=== PATIENT | female | born 1980 | race Caucasian/White ===

== ENCOUNTER 2024-09-03 12:10 | Day surgery (SDC) | payer SELFPAY ==
[2024-09-03] VITALS (10 sets, daily range): BP systolic 106–127; BP diastolic 61–78; PULSE 71–98; RESP 14–18; TEMP 36.6–37.3; O2SAT 96–100; BMI 27.6
[2024-09-03 13:02] LABS: Hematocrit 35.3 % (37-47); Hemoglobin 11.7 g/dL (12.0-15.0); Mean Corp Hgb Conc 33.1 g/dL (32-36); Mean Corpuscular Hgb 30.5 pg (27.0-32.0); Mean Corpuscular Volume 91.9 fL (81-99); Mean Platelet Vol. 9.1 fl (6.2-12.0); Platelet Count 340 K/mm3 (150-450); RBC Distribution Width CV 12.8 % (11.6-14.6); RBC Distribution Width SD 42.8 fl (35.1-43.9); Red Blood Count 3.84 M/mm3 (4.2-5.4); White Blood Count 5.3 K/mm3 (4.4-11.0)
[2024-09-03 13:18] LABS: Internal QC Validated? YES +Cl - CLEAR BKGD; Pregnancy, Serum, hCG Quali. NEGATIVE Negative
--- NOTE | 2024-09-03 13:25 | PCM.PRE.AN2 ---
ASA Classification* ASA Classification ASA Classification: 1 Assessment & Plan Anesthesia* Anesthesia Assessment Anesthesia Assessment: Discussed sedation and/or anesthesia options, risks, benefits, and alternatives with patient/parents/legal guardian/POA. Questions invited. The patient/parents/legal guardian/POA seems to understand and agrees to proceed with anesthesia plan. Reviewed the physical assessment, medical history, allergy history and patient home medications list prior to surgery/procedure/anesthetic and documented any changes. Performed airway and anesthesia risk assessments. Anesthesia Type Anesthesia Type: MAC History Source History Obtained from:: Patient Anesthesia Focused Assessment* Temperature: 99.2 F Pulse Rate: 82 Blood Pressure: 119/62 Respiratory Rate: 16 Pulse Ox: 100 Oxygen Delivery Method: Room Air Airway Assessment Mouth opens: >3 cm Mallampati Score: I Teeth Condition: Intact, Partial and Upper Neck Range of motion (ROM): Full ROM Focused Labs Anesthesia Preop lab: CBC WBC 5.3 K/mm3 (4.4-11.0) 09/03/24 12:50 09/03/24 RBC 3.84 M/mm3 (4.2-5.4) L 09/03/24 12:50 09/03/24 Hgb 11.7 g/dL (12.0-15.0) L 09/03/24 12:50 09/03/24 Hct 35.3 % (37-47) L 09/03/24 12:50 09/03/24 Plt Count 340 K/mm3 (150-450) 09/03/24 12:50 09/03/24 CHEMISTRY COAG Pre-Assessment Diagnosis/Proposed Procedure Planned Operative Procedure(s): HYSTEROSCOPY D&C POLYPECTOMY Anesthesia History Anesthesia History - child care counselor: Anesthesia History - child care counselor Hx Hospitalization No 08/21/24 09:18 Any Problems With Anesthesia No: NO SURGERY HX 08/21/24 09:18 Cholinesterase deficiency No 08/21/24 09:18 You/Your Family Experience No 08/21/24 09:18 fever (hyperthermia) with Relationship Recent Exposure to Contagious No 09/03/24 12:48 Disease Does patient have nerve No 08/21/24 09:18 stimulator Patient instructed to have device shut off --Does patient have Pacemaker No 09/03/24 12:48 or ICD? When Was Last Pacemaker Check QUESTION #4 FULL TEXT: You/Your Family Experience fever (hyperthermia) with Anesthesia Any additional information?: No Last Oral Intake Last Oral intake: Last Oral Intake NPO since 07:30 09/03/24 12:48 Meds taken in AM with sips of No 09/03/24 12:48 water? Meds patient instructed to take am of surgery Any additional information?: No PONV PONV - child care counselor: PONV - child care counselor Female Yes 08/21/24 09:18 HX of Motion Sickness Yes 08/21/24 09:18 HX of N/V After Surgery No 08/21/24 09:18 Non-Smoker Yes 08/21/24 09:18 Duration of Surgery greater No 08/21/24 09:18 than 60 minutes Number of Risk Factors 3 08/21/24 09:18 PONV Score Moderate Risk 08/21/24 09:18 Any additional information?: No Height & Weight Height & Weight: Anesthesia: Height & Weight Height 5 ft 4 in 09/03/24 12:48 Weight: 73 kg 09/03/24 12:48 Body Mass Index (BMI) 27.6 09/03/24 12:48 Respiratory Assessment Respiratory Assessment - child care counselor: Respiratory Tract Infection Hx - child care counselor Hx Respiratory Tract Infection No 08/21/24 09:18 Any additional information?: No STOP Sleep Apnea STOP Sleep Apnea - child care counselor: STOP Sleep Apnea - child care counselor Hx Hypertension No 08/21/24 09:18 Hx Sleep Apnea No 08/21/24 09:18 CPAP BIPAP Do you snore loudly (louder No 08/21/24 09:18 than talking or can be heard Do you often feel tired/ Yes 08/21/24 09:18 fatigued/ sleepy during daytime? Has anyone observed you stop No 08/21/24 09:18 breathing during sleep? STOP Results Negative 08/21/24 09:18 QUESTION #5 FULL TEXT : Do you snore loudly (louder than talking or can be heard through closed doors)? Any additional information?: No Tobacco Use History Tobacco Use History - child care counselor: Tobacco Use History - child care counselor Tobacco Use Smoking Status Never smoker 08/21/24 09:18 Hx Tobacco Use No 08/21/24 09:18 Years Smoking Packs Smoked per Day Smoking Cessation Date was within the last 15 years Hx Smoking Cessation Date Hx Smoking Cessation Counseling Any additional information?: No Hematologic Medial History Hematologic Hx - child care counselor: Hematologic Medical Hx - customs and border protection officer Hx of Blood Transfusion No 08/21/24 09:18 Hx of Transfusion in last 3 No 08/21/24 09:18 Months Date of Last Transfusion (if within last 3 months) Ever experience any problems No 08/21/24 09:18 with transfusion(s)? Specify any problems Hx of Preganancy in last 3 No 08/21/24 09:18 Months Nurse Filling Out Transfusion DSCHRIBER 08/21/24 09:18 & Questions: Date: 08/21/24 08/21/24 09:18 Time: 09:19 08/21/24 09:18 Patient unable to answer at this time (ie. confused, unrespo Any additional information?: No /Reproduction History /Reproductive History - child care counselor: /Reproductive Hx- child care counselor Hx Now No 08/21/24 09:18 Gestational Age (in weeks): EDC: Hx Hx Para Hx Section SAB No 08/21/24 09:18 Any additional information?: No PFSH Medical History (Updated 08/21/24 @ 09:26 by Marge Bernard) Wears glasses Wears partial dentures Anxiety Eczema Low iron High cholesterol Back pain Migraine headache Injury of head and neck Syncope History of hiatal hernia Heartburn Shortness of breath on exertion Non-smoker History of pain when walking History of edema History of echocardiogram Palpitation Home Medications ?Medication ?Instructions ?Recorded ?Last Taken ?Type multivitamin 1 tab PO QDAY 08/09/24 Unknown History Allergy/AdvReac Type Severity Reaction Status Date / Time iodine Allergy Severe Hives Verified 09/03/24 12:34 Family History (Updated 08/09/24 @ 10:56 by Soheila Butler) Mother Cancer of kidney Grandmother Hypertension Grandfather Myocardial infarction Surgical History No history of previous surgery Social History (Updated 08/09/24 @ 10:58 by Soheila Butler) other: 1 child was adopted, 1 child was adopted embryo Smoking Status: Never smoker additional social history: -Terrell Review of Systems (Anesthesia) ROS Narrative System reviewed and no additional complaints, except as documented. Physical Exam Const alert, oriented x3 and average body habitus Resp normal respiratory effort, normal air movement and clear to auscultation bilaterally Cardio regular rate, regular rhythm, no murmurs and diaphoretic
--- NOTE | 2024-09-03 13:50 | EMB_PTH ---
PATIENT: SHARI CABRERA LOC: [facility] [place] U#:[id number] AGE/SX: 43/F ROOM: RE09/03/[address]: Dr. Hallie Guzman DO : 1980 BED: DIS: 09/03/2024 SPEC #: [id number] RECD: 09/04/24 10:40 STATUS: ANIBAL ANDRAE #: [id number] SHANIA: 09/03/24 13:[address]: Hallie Guzman DEPT: SURGICAL PATHOLOGY RECD BY: Brayden Almonte ENTERED: 09/04/24 10:40 SP TYPE: ENDOM BX/C OTHR DR: RADHA Trent Tissues: Endometrium, NOS Procedures: Surgery Specimen Level IV HEADER OPERATION: Hysteroscopy, D&C, myomectomy PRE-OP DIAGNOSIS: Uterine fibroid, endometrial polyp TISSUE SUBMITTED: Endometrial curettings MICROSCOPIC DIAGNOSIS ENDOMETRIUM, CURETTAGE: * Fragments of secretory endometrium and lower uterine segment - see note. * Few fragments of benign smooth muscle. * Note: Some of the fragments show features suggestive of polyp. MICROSCOPIC DESCRIPTION Slides are reviewed. GROSS DESCRIPTION The specimen is received in one container labeled with the patient's name and designated endometrial curettings. The specimen consists of multiple fragments of nieto-brown soft tissue measuring in aggregate 4 x 3 x 0.5 cm. TE1. 09/04/24 CPT:57732
--- NOTE | 2024-09-03 14:23 | HP.PCM_ITS ---
History and Physical Date of Admission: 09/03/24 Intake Vital Signs 08/09/2509:54 Weight: 161 lb 4 oz BP 120/72 Intake Visit Reasons: CONSULTATION (NO EMB) (AMY) [facility] Coordinator Required: No Allergies iodine Allergy (Severe, Verified 08/09/24 10:54) Hives Medications ?Medication ?Instructions ?Recorded ?Confirmed ?Type multivitamin 1 tab PO QDAY 08/09/24 08/09/24 History Post menopausal: No Patient : No : No PFSH Medical History Hypertension UTI (urinary tract infection) Family History (Updated 08/09/24 @ 10:56 by Soheila Butler) Mother Cancer of kidneyGrandmother HypertensionGrandfather Myocardial infarction Social History (Updated 08/09/24 @ 10:58 by Soheila Butler) other: 1 child was adopted, 1 child was adopted embryo Smoking Status: Never smoker additional social history: -Terrell HPI CONSULTATION (NO EMB) (AMY) Details: SHARI CABRERA is a 43 year old who presents for to discuss finding on ultrasound of a uterine polyp. She was seen by her pcp for a routine exam and they found her to have an enlarged uterus. ultrasound showed an 11 cm uterus with small intramural fibroids and one endometrial polyp/mass/fibroid. This measures 1.5 x 0.8 x 1.8 cm. She and her partner are working on adopting a baby. She had one baby via adopted embryo. Her partner is sterile. History 1 Elective abortions Hx Para 1 Spontaneous abortions Hx # Term Pregnancies Ectopic pregnancies Hx # Pregnancies Multiple births # of living children Past Pregnancies Del. Date Name GA/Weeks Outcome Route Bth Weight Gen Labor Lgth Anesthesia Del Locatn Provider FOB Unknown Sherry Unknown [place] ROS Const ROS Unobtainable: All systems reviewed & are unremarkable except as noted in H Resp Resp: Reports system reviewed and no additional complaints, except as documented; Denies cough GI GI: Reports as per HPI Psych Psych: Reports system reviewed and no additional complaints, except as documente d Exam Const General: cooperative, healthy appearing, comfortable and no acute distress Resp Effort & Inspection: normal respiratory effort Skin General: no rashes or lesions noted Psych Appearance: grossly normal Speech and Movement: speech and movement normal Coding Level of Care Code Off vis,new,level 4 Diagnoses Uterine fibroid D25.9 Endometrial polyp N84.0 Assessment and Plan Assessment and Plan (1) Uterine fibroid: Status: Acute (2) Endometrial polyp: Status: Acute Plan After discussing the patient's diagnosis and treatment plan options, patient wishes to proceed with surgical management. I have discussed with the patient the risks, benefits, and alternatives of the procedure which include but are not limited to risks of anesthesia, bleeding, infection, possible damage to bowel, bladder, or surrounding vasculature which could lead to additional surgery to evaluate any complications. Patient agrees to procedure and wishes to proceed. ACOG/uptodate references given for additional information regarding procedure. plan for hysteroscopy dilation and curettage, polypectomy vs myomectomy
--- NOTE | 2024-09-03 14:34 | DCINST_ITS ---
Discharge Instructions Diet Discharge Diet: No restrictions DC O2, CPAP, BIPAP needs Home O2 Discharge instructions: No Dressing / Incision Discharge Activity: Return to Normal Activity, May Shower and May Take a Tub Bath (after 1 week) May resume sexual activity in: 1-2 weeks Weight Bearing Status: Weight bearing as tolerated Lifting Restrictions: none Dressing / Incision Call your doctor if you observe: Fever of 101 or Higher, Using more than 1 pad per hour, Shortness of breath and Uncontrolled pain Follow Up Care Please Follow Up With: Hallie Guzman DO When: Call [phone] to schedule appointment. Test Results: Test results from this visit will be discussed in further detail at your follow- up appointment, if applicable. Discharge Plan Admission Primary Reason for Your Visit: hysteroscopy dilation and curettage Attending Provider: Hallie Guzman Primary Care Provider: Reshma Basilio Instructions Print Language: [place] Helen[place] Discharge Orders/Prescriptions Prescriptions: New naproxen 500 mg tablet 500 mg PO BID PRN (Reason: pain) Qty: 20 0RF oxycodone-acetaminophen [Percocet] 5-325 mg tablet 1 tab PO Q4H PRN (Reason: pain) 3 Days Qty: 5 0RF No Action multivitamin Tablet 1 tab PO QDAY Disposition Disposition (needs filled in before D/C Order can be placed): Home, Self Care
[2024-09-03] MEDS: Lidocaine 1% (20 ml mdv) 20 ML Vial (15:05)
--- NOTE | 2024-09-03 15:07 | PCM.OPRPT ---
Problems Associated Problem List Diagnoses (1) Endometrial polyp: (2) Uterine fibroid: Multi Select Codes Urinary/Genital Urinary/Genital CPT Codes: 20307 Hysteroscopic myomectomy Operative Report (Standard) Operative Information Date of Procedure: 09/03/24 Pre-Operative Diagnosis: abnormal uterine bleeding, finding of fibroid in the endometrium on ultrasound Post-Operative Diagnosis: abnormal uterine bleeding, endometrial fibroid Surgery/Procedure Performed: hysteroscopy dilation and curettage, myomectomy customs and immigration officer: No Type of Anesthesia: MAC and Topical Anesth RN Documented Start/Stop Times: Operation Date: 09/03/24 13:50 Case Time Into Pre-Op 09/03/24 12:23 Out of Pre-Op 09/03/24 14:33 Anesthesia Start 09/03/24 14:40 Into Room 09/03/24 14:40 Procedure Start 09/03/24 14:56 Procedure Start Time: 14:56 Procedure Stop Time: 15:08 Select all DRAINS/GRAFTS/IMPLANTS that apply: None Estimated Blood Loss: 5cc Specimen collected: Yes Description of specimen(s) removed: endometrial curetting's Description of surgery: Patient was prepped and draped in a normal sterile fashion under MAC anesthesia. A weighted speculum was placed in the vagina and the anterior lip of the cervix was grasped with a single-tooth tenaculum. A paracervical block was placed with 1% lidocaine. Cervix was progressively dilated to allow passage of a 5 mm hysteroscope. The lining was fully visualized and noted to have a fibroid at the fundal/ upper uterine segment at the posterior wall. Uterine sounded to 9 cm. Curettage was performed using the symphion as well as a myomectomy with the symphion. Specimens were sent to pathology. All instruments were removed from the vagina and excellent hemostasis was noted. Patient was awoken and taken to recovery in stable condition. Surgical Findings: 450 cc fluid deficit, posterior uterine wall fibroid Complications Complications: No Admit VTE Documentation VTE Present on Admission: No VTE Mechan Device Prophylaxis: None VTE Pharm Prophylaxis ordered?: No
--- NOTE | 2024-09-03 15:22 | PCM.POST.ANE ---
Anesthesia: Postop Eval I Current Vital Signs Temperature: 98 F Pulse Rate: 76 Blood Pressure: 106/61 Respiratory Rate: 18 Pulse Ox: 96 Oxygen Delivery Method: Room Air Assessment Airway patent: Yes Spontaneous unlabored respirations: Yes Mental status: Awake and Calm nausea: No Vomiting: No Anesthesia Complication: No Fluid Hydration Crystalloid volume administer (ml): 800 Total IV fluid infused: 800 Progress Note Anesthesia document: Postop Eval 1 completed: Yes
--- NOTE | 2024-09-03 17:14 | POSTOPAN2_ITS ---
Anesthesia Postop Eval I Sum Postop Eval Completion status Anesthesia document: Postop Eval 1 completed: Yes Anesthesia Postop Eval I Summary Anesthesia Postop Eval I Summary: Anesthesia Postop Eval I: Assessment Summary Airway patent Yes 09/03/24 15:23 READING INTERVENTION TEACHER.HBARR Spontaneous unlabored Yes 09/03/24 15:23 READING INTERVENTION TEACHER.HBARR respirations Mental status Awake,Calm 09/03/24 15:23 READING INTERVENTION TEACHER.HBARR nausea No 09/03/24 15:23 READING INTERVENTION TEACHER.HBARR Vomiting No 09/03/24 15:23 READING INTERVENTION TEACHER.HBARR Anesthesia Postop Eval I: Fluid Summary Crystalloid volume administer 800 09/03/24 15:23 READING INTERVENTION TEACHER.HBARR (ml) Colloids volume administered ( ml) Blood Product volume administered (ml) Total IV fluid infused 800 09/03/24 15:23 READING INTERVENTION TEACHER.HBARR Anesthesia Postop Eval I: Summary Notes Anesthesia Complication No 09/03/24 15:23 READING INTERVENTION TEACHER.HBARR Anesthesia Complication Comment: Post-operative progress note Anesthesia: Postop Eval II Evaluation Mental status: Awake Pain Level: 0 nausea: No Vomiting: No Complications Anesthesia Complication: No
--- NOTE | 2024-09-03 17:14 | PCM.POSTANE2 ---
Anesthesia Postop Eval I Sum Postop Eval Completion status Anesthesia document: Postop Eval 1 completed: Yes Anesthesia Postop Eval I Summary Anesthesia Postop Eval I Summary: Anesthesia Postop Eval I: Assessment Summary Airway patent Yes 09/03/24 15:23 POLICE BOOKING OFFICER.HBARR Spontaneous unlabored Yes 09/03/24 15:23 POLICE BOOKING OFFICER.HBARR respirations Mental status Awake,Calm 09/03/24 15:23 POLICE BOOKING OFFICER.HBARR nausea No 09/03/24 15:23 POLICE BOOKING OFFICER.HBARR Vomiting No 09/03/24 15:23 POLICE BOOKING OFFICER.HBARR Anesthesia Postop Eval I: Fluid Summary Crystalloid volume administer 800 09/03/24 15:23 POLICE BOOKING OFFICER.HBARR (ml) Colloids volume administered ( ml) Blood Product volume administered (ml) Total IV fluid infused 800 09/03/24 15:23 POLICE BOOKING OFFICER.HBARR Anesthesia Postop Eval I: Summary Notes Anesthesia Complication No 09/03/24 15:23 POLICE BOOKING OFFICER.HBARR Anesthesia Complication Comment: Post-operative progress note Anesthesia: Postop Eval II Evaluation Mental status: Awake Pain Level: 0 nausea: No Vomiting: No Complications Anesthesia Complication: No
== END 2024-09-03 17:05 | disposition home or self-care (01) ==
LOC: SDC 12:19 → AC 12:20
PROVIDERS: Student in an Organized Health Care Education/Training Program; PCP Physician Assistant; Referring Provider Obstetrics & Gynecology; Visit Provider Obstetrics & Gynecology
PROC: 0UDB8ZZ Extraction of Endometrium, Via Natural or Artificial Opening Endoscopic (ICD-10-PCS; CPT 58558; principal; 2024-09-03 13:40)
DX: D25.1 Intramural leiomyoma of uterus (principal); N84.0 Polyp of corpus uteri; N93.9 Abnormal uterine and vaginal bleeding, unspecified; I10 Essential (primary) hypertension; E78.00 Pure hypercholesterolemia, unspecified
CPT/HCPCS: 58558; 00952; 84703; 85027; 86850; 86900; 86901; 88305; J2405